=== PATIENT | female | born 1985 | race Caucasian/White ===

== ENCOUNTER 2016-05-23 02:09 | Emergency (ER) | payer OTHER ==
[~2016-05-23] VITALS: Ht 157.5 cm; Wt 137.5 kg
[~2016-05-23 02:09] MED LIST: ASPI81TA28 PO; LANS30CA12 PO; LORA-741 PO
[2016-05-23 02:13] VITALS: TEMP 36.4; Ht 157.5 cm; Wt 137.5 kg
[2016-05-23] MEDS ORDERED: IBUPROFEN 600 MG TAB PO STA (02:20)
[2016-05-23] MEDS ORDERED: DIPHTHERIA/TETANUS/PERTUSSIS 0.5 ML SYR/VIAL IM. ONE (02:30)
[2016-05-23] MEDS ORDERED: XYLOCAINE 1%/SOD BICARB 20 ML VIAL INFIL ONE (02:30)
--- NOTE | 2016-05-23 02:53 | EMERGENCY ROOM VISIT NOTE ---
History First contact with patient: 02:15 Chief Complaint: FALL Stated Complaint: CUT LEG RT, RT WRIST HURTS-WC History of Present Illness The patient is a 31 year old female who presents to the Emergency Room with complaints of right wrist injury, right lower leg laceration with abrasion, right elbow abrasion and head injury after she fell at work landing on her right wrist and striking her head. Patient accidentally hit her leg on an object at work while carrying boxes and cut it. Tetanus is not current. Patient denies loss of conscious, neck pain, facial pain, dental pain, visual problems, numbness, tingling, hand pain, finger pain, elbow pain, chest pain, dyspnea, abdominal pain or any other medical complaints. No prior fracture to this area. Patient states this is a work-related injury. Review of Systems See HPI for pertinent positives & negatives. A total of 10 systems reviewed and were otherwise negative. Past Medical/Surgical History Medical Problems: (1) Cholelithiasis Nos Appendectomy Family History Patient reports no known family medical history. Social History Smoking Status: Current Every Day Smoker Alcohol Use: occasionally Drug Use: none Marital Status: in relationship Housing Status: lives with significant other Occupation Status: employed Current/Historical Medications Scheduled Lansoprazole (Prevacid), 30 MG PO DAILY Allergies Coded Allergies: Amoxicillin (Verified Allergy, Severe, HIVES, 05/23/16) Physical Exam Vital Signs Date Time Temp Pulse Resp B/P Pulse Ox O2 Delivery O2 Flow Rate FiO2 05/23/16 02:25 99 20 133/92 97 Room Air 05/23/16 02:13 36.4 110 18 178/127 99 Room Air Physical Exam PHYSICAL EXAM: VITALS: Vitals are noted on the nurse's note and reviewed by myself. Vital signs hypertensive. GENERAL: Pleasant female, in no acute distress, nondiaphoretic, well-developed well-nourished. SKIN: 3 cm right lower leg laceration is gaping and appears clean with superficial abrasion to the right lower leg and to the right elbow that appears clean The rest of the skin was without obvious lacerations or abrasions. Capillary reflex less than 2 seconds. HEAD: Normocephalic atraumatic. Face: Face nontender to palpation with superficial contusion to the right temporal region EARS: External auditory canals clear, tympanic membranes pearly chao without erythema or effusion bilaterally. No hemotympanums. No hernandez sign. No mastoid tenderness. EYES: Pupils equal round and reactive to light and accommodation. Conjunctivae without injection, sclerae without icterus. Extraocular movements intact. NOSE: Patent, turbinates without inflammation or discharge. No sinus tenderness. No septal hematoma or bleeding. FACE: No facial bone tenderness. Full range of motion of the jaw without tenderness. MOUTH: Mucous membranes moist. Pharynx without erythema or exudate. Uvula midline. Airway patent. Tongue does not deviate. NECK: Supple without nuchal rigidity. Cervical spine is nontender. Full range of motion of the neck without tenderness. No JVD. HEART: Regular rate and rhythm without murmurs gallops or rubs. LUNGS: Clear to auscultation bilaterally without wheezes, rales or rhonchi. No dullness to percussion. No retractions or accessory muscle use. No chest wall tenderness. ABDOMEN: Positive bowel sounds x 4. Normal tympanic percussion. Soft, protuberant, obese, nontender, without masses or organomegaly. No guarding or rebound tenderness. MUSCULOSKELETAL: No tenderness of the thoracic or lumbar spine. Right wrist minimally tender to palpation with increased pain with range of motion, Full range of motion without tenderness to palpation in all other extremities. Normal gait. Strength 5/5 throughout. Peripheral pulses 2+. NEURO: Patient was alert and oriented to person place and time. Normal Mini- Mental status exam. Normal sensation to light and sharp touch. Negative Romberg and pronator drift. Cerebellar function intact. No focal neurological deficits. Medical Decision & Procedures Medications Administered Medications (Trade) Dose Ordered Sig/Riya Route Start Time Stop Time Status Last Admin Dose Admin Diphtheria/ Pertussis/Tetanus Vacc (Adacel Inj) 0.5 ml ONCE ONCE IM. 05/23/16 02:30 05/23/16 02:31 DC 05/23/16 02:30 0.5 ML Ibuprofen (Motrin Tab) 600 mg NOW STAT PO 05/23/16 02:20 05/23/16 02:22 DC 05/23/16 02:29 600 MG Procedure Location: Right lower leg Total length: 3 centimeters Complexity: Simple Verbal consent was obtained after the risks and benefits were explained, including but not limited to bleeding, scarring, infection, pain, and bone/joint /nerve damage. At this time, the risks of the procedure are less than the risks of NOT performing the procedure. A time out was taken and the correct patient and site identified. The skin was prepped with betadine. The target area was anesthetized with 3 ml of 1% lidocaine without epinephrine. Copious irrigation was performed using NS. The skin was re-prepped with betadine and a sterile field set. The wound was explored for foreign bodies and none found. Examination revealed no injury to deep structures such as tendons, bone, or significant blood vessels. Debridement was not performed. The wound edges were approximated using 5, 4-0 simple interrupted nylon sutures. Hemostasis and excellent approximation was achieved. Antibacterial ointment and a sterile dressing applied. The patient's leg was quite edematous secondary to move her obesity so an Reynaldo wrap was applied for extra compression. Neurovascular status was checked after placement and is intact. Detailed wound care instructions and signs and symptoms of infection reviewed with the pt. No complications and the patient tolerated the procedure well. ED Course Prior records/ancillary studies reviewed. Triage Nursing notes reviewed. Additional history obtained from family. The patient's history was concerning for traumatic head injury, lower leg laceration and wrist injury Differential diagnosis: Etiologies such as concussion, contusion, fracture, subdural hematoma, epidural hematoma, intraparenchymal hemorrhage, as well as other traumatic pathologies were entertained. Physical examination findings: As above. ER treatment provided: Laceration repaired as above On reassessment the patient felt better. Diagnostics interpreted by me: Imaging studies: Wrist x-ray with no acute fracture, dislocation or effusion per my interpretation It appears the patient has a head injury with wrist injury and lower leg laceration and abrasion. I discussed the risks and the benefits of CT scanning. Clinically the patient is doing well and does not appear to have a significant underlying injury. The pt felt comfortable with conservative observation with the understanding if the clinical picture change that imaging may be necessary at a later time. I gave my usual and customary discussion regarding this issue. Patient was counseled on head injury signs and symptoms and verbalized understanding of this. She was advised no alcohol or strenuous activity for the week and do not resume these activities until cleared by family care. Patient was also counseled on wound care. She is advised to return to the immediate for severe pain, fevers, drainage, redness, worsening signs or symptoms or as needed. By the evaluation outlined above emergent etiologies such as fracture, subdural hematoma, epidural hematoma, intraparenchymal hemorrhage, as well as others were deemed relatively unlikely. The pt informed about the findings as listed above. All questions were answered and pleased with the treatment. Return instructions were outlined and the patient was discharged in stable condition. Referral: The patient was referred back to their primary care physician/occupational health for follow-up in 2 to 3 days for a recheck of the current condition. Case reviewed with my attending. Medical Decision As above Impression Primary Impression: Fall Additional Impressions: Work related injury Laceration of right lower leg Abrasion, right lower leg, initial encounter Abrasion of right elbow, initial encounter Right wrist injury Head injury Departure Information Dispostion Home / Self-Care Condition GOOD Referrals No Doctor, Assigned (PCP) Patient Instructions My [facility] Additional Instructions Read head injury handout and return for any symptoms. Tylenol 1000 mg as needed for pain (Maximum 3000 mg Tylenol in 24 hr period). Avoid alcohol and contact sports/activities for one week and follow up with family doctor prior to returning to these activities if still symptomatic. Ice and elevate head. If your symptoms persist more than a week then follow up with the concussion clinic. Call [phone]. Return to ER sooner for headache, fevers, confusion, worsening signs or symptoms or as needed. Wear Reynaldo wrap for compression over laceration until stitches are removed. Do not have it so tight that you cannot feel your foot. Keep wound clean and dry. Do not allow any crusting or dried blood to accumulate on sutures. If this occurs, use a 1:1 solution of hydrogen peroxide/ water on a Q-tip to clean the wound. Use an antibiotic ointment for 3-4 days, then let wound dry. Suture removal in 10-12 days. Return sooner for any signs of infection (increasing redness, swelling, drainage). Ice and elevate for swelling and pain. Ibuprofen 600 mg and Tylenol 1000 mg every 6 hrs for pain. Keep covered when in sun until sutures removed then SPF 50 or higher for one year. Vitamin E oil if desired two weeks after suture removal for reduction of scar Antibiotic ointment and bandage to the areas until healed. Follow up with family doctor or return for any signs of infection (increasing redness, swelling , drainage, or fever). Keep covered when in sun until fully healed then SPF 50 or higher until scar healed. Return to ER sooner for headache, fevers, confusion, severe pain, numbness, tingling, worsening signs or symptoms or as needed. This is a work-related injury. Follow-up with your occupational health. 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 Problem Qualifiers Primary Impression: Fall Encounter type: initial encounter Qualified Codes: W19.XXXA - Unspecified fall, initial encounter Additional Impressions: Laceration of right lower leg Encounter type: initial encounter Qualified Codes: S81.811A - Laceration without foreign body, right lower leg, initial encounter Head injury Encounter type: initial encounter Qualified Codes: S09.90XA - Unspecified injury of head, initial encounter
[2016-05-23 03:13] VITALS: BP 151/89; PULSE 91; O2SAT 97
--- NOTE | 2016-05-23 08:00 | DIAGNOSTIC IMAGING REPORT ---
RIGHT WRIST 5 VIEWS CLINICAL HISTORY: Fall with right wrist pain. FINDINGS: 5 views of the right wrist are obtained. No prior studies are available for comparison at the time of dictation. The skeletal structures are well mineralized. No fracture is seen. The joint spaces of the wrist are preserved. The overlying soft tissues are within normal limits. IMPRESSION: Unremarkable radiographic assessment of the right wrist. Electronically signed by: Erwin Bartholomew M.D. 05/23/2016 7:58 AM Dictated Date/Time: 05/23/2016 7:57 AM
== END 2016-05-23 03:15 | disposition home or self-care (01) ==
LOC: C.EDB 02:10
DX: S81.811A Laceration without foreign body, right lower leg, initial encounter (principal); S09.90XA Unspecified injury of head, initial encounter; S50.311A Abrasion of right elbow, initial encounter; S69.91XA Unspecified injury of right wrist, hand and finger(s), initial encounter; Y99.0 Civilian activity done for income or pay; W22.09XA Striking against other stationary object, initial encounter; F17.210 Nicotine dependence, cigarettes, uncomplicated; Z79.899 Other long term (current) drug therapy

== ENCOUNTER 2016-06-02 18:39 | Emergency (ER) | payer OTHER ==
[~2016-06-02] VITALS: Ht 157.5 cm; Wt 137.8 kg
[~2016-06-02 18:39] MED LIST changes: -ASPI81TA28 PO; -LORA-741 PO
[2016-06-02 18:55] VITALS: BP 146/84; PULSE 89; TEMP 36.6; O2SAT 97; Ht 157.5 cm; Wt 137.8 kg
--- NOTE | 2016-06-02 19:08 | EMERGENCY ROOM VISIT NOTE ---
ED Visit Note First contact with patient: 18:59 CHIEF COMPLAINT: Removal of sutures HISTORY OF PRESENT ILLNESS: This 31-year-old female patient presents to the emergency department for removal of sutures from their right lower leg. The sutures were placed 10 days ago. There have been no signs of infection. The patient denies any pain. REVIEW OF SYSTEMS: A review of systems was performed with positives and pertinent negatives listed in the history of present illness. All other systems were reviewed and are negative. ALLERGIES: Amoxicillin MEDICATIONS: Unchanged from previous visit. PMH: Unchanged from previous visit. SOCIAL HISTORY: Patient lives locally with family. PHYSICAL EXAM: VITALS: Vitals are noted on the nurse's note and reviewed by myself. Vital signs stable. GENERAL: This is a 31-year-old female, in no acute distress, nondiaphoretic, well-developed well-nourished. SKIN: There is a well-healing sutured wound on the right lower leg with no signs of infection. EMERGENCY DEPARTMENT COURSE: The patient was evaluated as above. Sutures were removed from the right leg with no dehiscence. There is no evidence of infection. Scar reduction measures were discussed the the patient. They verbalized understanding and were discharged home in good condition. DIAGNOSIS: Encounter for suture removal DISCHARGE INSTRUCTIONS & TREATMENT: Wash the remaining crusts off the wound. Keep the wound covered with SPF for the next 6 months to reduce scarring. Once the wound has fully healed, you may apply Vitamin E oil, cocoa butter, or any over the counter scar reducing formulations daily. Current/Historical Medications Scheduled Lansoprazole (Prevacid), 30 MG PO DAILY Allergies Coded Allergies: Amoxicillin (Verified Allergy, Severe, HIVES, 05/23/16) Vital Signs Date Time Temp Pulse Resp B/P Pulse Ox O2 Delivery O2 Flow Rate FiO2 06/02/16 18:55 36.6 89 18 146/84 97 Room Air Departure Information Impression Primary Impression: Encounter for removal of sutures Dispostion Home / Self-Care Condition GOOD Referrals No Doctor, Assigned (PCP) Patient Instructions My [facility] Additional Instructions Wash the remaining crusts off the wound. Keep the wound covered with SPF for the next 6 months to reduce scarring. Once the wound has fully healed, you may apply Vitamin E oil, cocoa butter, or any over the counter scar reducing formulations daily.
== END 2016-06-02 19:14 | disposition home or self-care (01) ==
LOC: C.EDB 18:54 → C.EDD 19:14
DX: S81.811D Laceration without foreign body, right lower leg, subsequent encounter (principal); X58.XXXD Exposure to other specified factors, subsequent encounter

== ENCOUNTER 2016-07-17 15:11 | Emergency (ER) | payer OTHER ==
[~2016-07-17] VITALS: Ht 157.5 cm; Wt 139.7 kg
[2016-07-17 15:16] VITALS: TEMP 36.7; Ht 157.5 cm; Wt 139.7 kg
[2016-07-17] MEDS ORDERED: LIDOCAINE HCL 2% JELLY 30 ML TUBE EXT ONE (15:45)
--- NOTE | 2016-07-17 16:27 | DIAGNOSTIC IMAGING REPORT ---
RIGHT LOWER EXTREMITY ULTRASOUND CLINICAL HISTORY: Open wound right lower leg. COMPARISON STUDY: No previous studies for comparison. FINDINGS: No well-defined fluid collection is identified to suggest an abscess within the right calf at site of wound. There was a ill-defined hypoechoic subcutaneous focus at the level of the wound. No foreign body was identified. There was subcutaneous edema. IMPRESSION: No right calf abscess identified by sonography at site of wound. Electronically signed by: Chirag Stringer M.D. 07/17/2016 4:26 PM Dictated Date/Time: 07/17/2016 4:24 PM
[2016-07-17] MEDS ORDERED: CEPH500C PO (16:40)
[2016-07-17 16:56] VITALS: BP 133/69; PULSE 91; O2SAT 96
--- NOTE | 2016-07-19 18:34 | EMERGENCY ROOM VISIT NOTE ---
History First contact with patient: 15:22 Chief Complaint: INFECTION Stated Complaint: RIGHT LEG INFECTION History of Present Illness The patient is a 31 year old white female who presents to the Emergency Room with complaints of a persisting infection on her right lower leg. Patient was seen here initially in May for a leg laceration. She was working and accidentally cut herself on a broken beer bottle. Wound was explored here, irrigated, and closed here. She return for suture removal as instructed and no infection was found at that time. She states the wound has not healed. It has become more tender and is now draining pus. She denies any fevers or chills. She denies any streaking. There is no surrounding redness. She has not seen her PCP. No other treatment. A male director of agronomy accompanies her today. Review of Systems REVIEW OF SYSTEM: HEENT: No dizziness, visual problems, hearing loss, or tinnitus. There is no difficulty swallowing and no oral lesions are present. LYMPH: No adenopathy. PULMONARY: No cough, shortness of breath, sputum production or hemoptysis. CARDIOVASCULAR: No chest pain, palpitations, shortness of breath or peripheral edema. GASTROINTESTINAL: No diarrhea, constipation, nausea, vomiting, or abdominal pain. GENITOURINARY: No dysuria, frequency, urgency or nocturia. NEUROLOGIC: No weakness, muscle tenderness, epilepsy or history of neurological problems. MUSCULOSKELETAL: No history of joint tenderness/swelling. No history of arthritis or arthralgias. SKIN: No rashes or lesions. PSYCHIATRIC: No history of depression or mental illness. ENDOCRINE: No history of diabetes, thyroid disorders, or abnormal hair growth. Past Medical/Surgical History Medical Problems: (1) Cholelithiasis Nos Family History Patient reports no known family medical history. Social History Smoking Status: Current Every Day Smoker Smokeless Tobacco Use: No Alcohol Use: occasionally Drug Use: none Marital Status: in relationship Housing Status: lives with significant other Occupation Status: employed Current/Historical Medications Scheduled Cephalexin Monohydrate (Keflex), 500 MG PO QID Lansoprazole (Prevacid), 30 MG PO DAILY Allergies Coded Allergies: Amoxicillin (Verified Allergy, Severe, HIVES, 05/23/16) Physical Exam Vital Signs Date Time Temp Pulse Resp B/P (MAP) Pulse Ox O2 Delivery O2 Flow Rate FiO2 07/17/16 16:56 91 16 133/69 96 07/17/16 15:16 36.7 91 20 123/81 94 Room Air Pain Rating (0-10): 0 Physical Exam Gen.: Well-developed, well-nourished, morbidly obese young white female, in no acute distress. Obvious discomfort. Laying on a bed. Alert and oriented. Skin:Warm and dry with good turgor. No rashes. No ecchymosis. Patient has a slight pinkish tint to her entire lower leg. When compared to the other leg, it is the same. She has a 1.5-2 cm granulating area on the lateral aspect of her lower leg. Scab is present. There is serous fluid present. Nothing is expressible. I find no evidence for pus. Patient is hypersensitive in the area. There is no foreign material visible. It appears similar to a chronic ulceration. Stable base. It is shallow. The patient is not diaphoretic. No additional abrasions. Musculoskeletal: Gross motor function is intact to the right leg at the toes, ankle, knee, and hip. Neurologic: Gross sensation is intact across the right leg by soft touch. Peripheral pulses are 2+. Medical Decision & Procedures ER Provider Diagnostic Interpretation: Musculoskeletal ultrasound was obtained today to assess for any deep pockets or retained foreign material. This was read by radiology as negative for abscess or retained foreign body. There is subcutaneous edema. Medications Administered Medications (Trade) Dose Ordered Sig/Riya Route Start Time Stop Time Status Last Admin Dose Admin Lidocaine HCl (Xylocaine Jelly 2%) 2 ml NOW ONCE EXT 07/17/16 15:45 07/17/16 15:46 DC 07/17/16 15:43 2 ML Lidocaine 2% jelly ED Course Patient and her director of agronomy were educated regarding today's findings. Conservative care measures were discussed. She was reassured that I do not suspect a deep abscess or retained foreign body. She may have some localized cellulitis. Because of her discomfort in the area, I did apply 2% lidocaine jelly topically. She was shown how to do wet-to-dry dressings and one was placed tonight. She will changes every 12-24 hours to assist with exfoliation. She was started on Keflex 500 mg 4 times a day 7 days to minimize any risk for infection. Tylenol and Motrin every 6 hours as needed for discomfort. Follow-up with her PCP for reexamination this week. Avoid picking at the wound. She should decrease her smoking or stop altogether as smoking will delay her wound healing. Medical Decision Possibility of abscess, retained foreign body, diabetic ulcer, and delayed wound healing due to picking at the wound, were all considered. Impression Primary Impression: Wound healing, delayed Departure Information Dispostion Home / Self-Care Condition GOOD Prescriptions Cephalexin Monohydrate (Keflex) 500 Mg Cap 500 MG PO QID, #28 CAP Prov: Atilio Mario,P.A. 07/17/16 Referrals No Doctor, Assigned (PCP) Forms WORK / SCHOOL INSTRUCTIONS, HOME CARE DOCUMENTATION FORM, MOTRIN USE, TYLENOL USE, IMPORTANT VISIT INFORMATION Patient Instructions My [facility] Additional Instructions Apply wet to dry dressings daily until the wound is fully healed-change once or twice per day Keflex one pill 4 times a day 7 days Follow-up with your PCP for reexamination later this week, and for a general checkup Tylenol and Motrin every 6 hours as needed for discomfort Avoid picking at the wound
== END 2016-07-17 16:57 | disposition home or self-care (01) ==
LOC: C.EDB 15:13 → C.EDC 16:57
DX: S81.801D Unspecified open wound, right lower leg, subsequent encounter (principal); W25.XXXD Contact with sharp glass, subsequent encounter; Y93.89 Activity, other specified; Y99.0 Civilian activity done for income or pay; F17.200 Nicotine dependence, unspecified, uncomplicated

== ENCOUNTER 2016-10-28 19:10 | Emergency (ER) | payer OTHER ==
[~2016-10-28] VITALS: Ht 157.5 cm; Wt 138.4 kg
[~2016-10-28 19:10] MED LIST changes: +CEPH500C PO
[2016-10-28 19:31] VITALS: BP 144/99; PULSE 97; TEMP 36.9; O2SAT 98; Ht 157.5 cm; Wt 138.4 kg
== END 2016-10-28 20:46 | disposition left against medical advice (07) ==
LOC: C.EDB 19:12
DX: I10 Essential (primary) hypertension (principal)

== ENCOUNTER 2016-11-11 01:27 | Emergency (ER) | payer SELFPAY ==
[~2016-11-11] VITALS: Ht 157.5 cm; Wt 139.9 kg
[2016-11-11 01:31] VITALS: TEMP 36.3; Ht 157.5 cm; Wt 139.9 kg
[2016-11-11] MEDS ORDERED: LORAZEPAM 1 MG TAB SL STA (02:04)
[2016-11-11 02:11] LABS: BASO % 0.2 %; BASO ABS # 0.03 K/uL (0-0.2); COMPLETE YES; EOS % 1.7 %; HEMATOCRIT 40.8 % (37-47); IG% 0.2 %; LYMPH % 23.8 %; MEAN CELL VOLUME 93.2 fL (80-100); MEAN CORPUSCULAR HEMOGLOBIN 31.1 pg (25-34); MEAN CORPUSCULAR HGB CONC 33.3 g/dl (32-36); MONO % 7.1 %; PLATELET COUNT 268 K/uL (130-400); RED BLOOD COUNT 4.38 M/uL (4.2-5.4); WHITE BLOOD COUNT 12.19 K/uL (4.8-10.8)
[2016-11-11 02:15] LABS: URINE APPEARANCE CLOUDY (CLEAR); URINE BILIRUBIN NEG (NEG); URINE COLOR YELLOW; URINE EPITHELIAL CELL AUTO >30 /lpf (0-5); URINE NITRITE NEG (NEG); URINE PH 7.5 (4.5-7.5); URINE SPECIFIC GRAVITY 1.019 (1.000-1.030); UROBILINOGEN NEG (NEG); ZZUR CULT IF INDIC CLEAN CATCH YES
[2016-11-11 02:19] LABS: MANUAL MICROSCOPIC REQUIRED? NO; REVIEW REQ? NO
[2016-11-11 02:29] LABS: ALT/SGPT 47 U/L (12-78); AST/SGOT 26 U/L (15-37); BLOOD UREA NITROGEN 12 mg/dl (7-18); BUN/CREATININE RATIO 15.6 (10-20); CALCIUM 8.6 mg/dl (8.5-10.1); CARBON DIOXIDE 26 mmol/L (21-32); CHLORIDE 104 mmol/L (98-107); CREATININE 0.76 mg/dl (0.60-1.20); GLUCOSE 101 mg/dl (70-99); MAGNESIUM 2.2 mg/dl (1.8-2.4); POTASSIUM 3.7 mmol/L (3.5-5.1); SODIUM 138 mmol/L (136-145)
[2016-11-11] MEDS ORDERED: MULTTAB58 PO (02:30)
[2016-11-11 02:39] LABS: ALB/GLOB RATIO 1.1 (0.9-2); ALKALINE PHOSPHATASE 85 U/L (45-117)
[2016-11-11 02:44] LABS: PREG INTERNAL NEGATIVE QC NEG CLEAR BACKGROUND; PREG INTERNAL POSITIVE QC POS CONTROL LINE
[2016-11-11 02:49] LABS: BENZODIAZEPINE, URINE NEG (NEG); COCAINE,URINE NEG (NEG); PHENCYCLIDINE, URINE NEG (NEG)
[2016-11-11] MEDS ORDERED: ATV/1 PO (04:18)
--- NOTE | 2016-11-11 04:19 | EMERGENCY ROOM VISIT NOTE ---
History First contact with patient: 01:35 Chief Complaint: DIZZY Stated Complaint: DIZZINESS,DON'T FEEL RIGHT,ANXIOUS Nursing Triage Summary: triage note: Pt took BP at home and was 205/126, pt states she has been feeling weak and dizzy for 2 weeks. Denies other symptoms. Pt reported high BP on [employer] [place] machine. Also reports history of severe anxiety , unsure if this is the same or not. History of Present Illness The patient is a 31 year old female who presents to the Emergency Room with complaints of "not feeling right." The patient states that she has had these symptoms for "a long time." She states that she has had symptoms intermittently for several years. She is having a difficult time describing her symptoms and states that she "feels weird." She states she feels like she forgets to breathe. She has a history of anxiety and does admit to feeling very anxious. She states that a few weeks ago she took her blood pressure at a grocery store and found to be 205/126. She bought a blood pressure cuff and has been measuring it frequently since then and states it has been elevated. The patient reports she has been treated in the past for her anxiety with Ativan , however her primary care provider will no longer prescribe this to her. She states she has been on multiple daily medications for her anxiety, but none of them work. She denies any chest pain, nausea/vomiting, or syncope. Review of Systems A complete 10 point review of systems was reviewed with the patient with pertinent positives and negatives as per history of present illness. All else were negative. Past Medical/Surgical History Medical Problems: (1) Cholelithiasis Nos Family History Patient reports no known family medical history. Social History Smoking Status: Current Every Day Smoker Alcohol Use: occasionally Drug Use: none Marital Status: in relationship Housing Status: lives with significant other Occupation Status: employed Current/Historical Medications Scheduled Lansoprazole (Prevacid), 30 MG PO DAILY Multiple Vitamin (Multivitamin), 1 PKT PO BIDM Scheduled PRN Lorazepam (Ativan), 1 MG PO TID PRN for Anxiety Allergies Coded Allergies: Amoxicillin (Verified Allergy, Severe, HIVES, 11/11/16) Physical Exam Vital Signs Date Time Temp Pulse Resp B/P (MAP) Pulse Ox O2 Delivery O2 Flow Rate FiO2 11/11/16 04:37 92 23 97 11/11/16 04:31 124/65 11/11/16 04:22 93 25 97 11/11/16 04:07 92 20 98 11/11/16 04:02 128/73 11/11/16 03:52 98 20 97 11/11/16 03:39 107/64 11/11/16 03:37 100 21 98 11/11/16 03:32 11/11/16 03:22 97 18 98 11/11/16 03:07 102 21 98 11/11/16 03:01 124/85 11/11/16 02:52 102 17 99 11/11/16 02:47 104 15 98 11/11/16 02:32 108 17 99 11/11/16 02:31 128/76 11/11/16 02:17 104 21 99 11/11/16 02:12 106 20 98 Room Air 11/11/16 02:01 140/103 11/11/16 01:57 108 16 11/11/16 01:52 111 11/11/16 01:31 36.3 111 18 141/90 100 Room Air Physical Exam VITALS: Vitals are noted on the nurse's note and reviewed by myself. Vital signs stable. GENERAL: This is a 31-year-old female, in no acute distress but anxious appearing, nondiaphoretic, well-developed well-nourished. SKIN: Capillary reflex less than 2 seconds. HEENT: Normocephalic. PERRLA. EOMI. Nares patent. Mucous membranes moist. Neck is supple without nuchal rigidity. HEART: Regular rate and rhythm without murmurs gallops or rubs. LUNGS: Clear to auscultation bilaterally without wheezes, rales or rhonchi. ABDOMEN: Positive bowel sounds x 4. Soft, nontender to palpation. NEURO: Patient was alert and oriented to person place and time. Medical Decision & Procedures ER Provider Diagnostic Interpretation: CHEST X-RAY: No acute cardiopulmonary findings. Laboratory Results 11/11/16 01:55 Red Blood Count 4.38, Mean Corpuscular Volume 93.2, Mean Corpuscular Hemoglobin 31.1, Mean Corpuscular Hemoglobin Concent 33.3, Mean Platelet Volume 11.0, Neutrophils (%) (Auto) 67.0, Lymphocytes (%) (Auto) 23.8, Monocytes (%) (Auto) 7.1, Eosinophils (%) (Auto) 1.7, Basophils (%) (Auto) 0.2, Neutrophils # (Auto) 8.15, Lymphocytes # (Auto) 2.90, Monocytes # (Auto) 0.87, Eosinophils # (Auto) 0.21, Basophils # (Auto) 0.03 11/11/16 01:55 Test 11/11/16 01:55 White Blood Count 12.19 K/uL (4.8-10.8) Red Blood Count 4.38 M/uL (4.2-5.4) Hemoglobin 13.6 g/dL (12.0-16.0) Hematocrit 40.8 % (37-47) Mean Corpuscular Volume 93.2 fL (80-100) Mean Corpuscular Hemoglobin 31.1 pg (25-34) Mean Corpuscular Hemoglobin Concent 33.3 g/dl (32-36) Platelet Count 268 K/uL (130-400) Mean Platelet Volume 11.0 fL (7.4-10.4) Neutrophils (%) (Auto) 67.0 % Lymphocytes (%) (Auto) 23.8 % Monocytes (%) (Auto) 7.1 % Eosinophils (%) (Auto) 1.7 % Basophils (%) (Auto) 0.2 % Neutrophils # (Auto) 8.15 K/uL (1.4-6.5) Lymphocytes # (Auto) 2.90 K/uL (1.2-3.4) Monocytes # (Auto) 0.87 K/uL (0.11-0.59) Eosinophils # (Auto) 0.21 K/uL (0-0.5) Basophils # (Auto) 0.03 K/uL (0-0.2) RDW Standard Deviation 44.2 fL (36.4-46.3) RDW Coefficient of Variation 13.0 % (11.5-14.5) Immature Granulocyte % (Auto) 0.2 % Immature Granulocyte # (Auto) 0.03 K/uL (0.00-0.02) Urine Color YELLOW Urine Appearance CLOUDY (CLEAR) Urine pH 7.5 (4.5-7.5) Urine Specific [place] 1.019 (1.000-1.030) Urine Protein NEG (NEG) Urine Glucose (UA) NEG (NEG) Urine Ketones NEG (NEG) Urine Occult Blood NEG (NEG) Urine Nitrite NEG (NEG) Urine Bilirubin NEG (NEG) Urine Urobilinogen NEG (NEG) Urine Leukocyte Esterase NEG (NEG) Urine WBC (Auto) 1-5 /hpf (0-5) Urine RBC (Auto) 0-4 /hpf (0-4) Urine Hyaline Casts (Auto) 1-5 /lpf (0-5) Urine Epithelial Cells (Auto) >30 /lpf (0-5) Urine Bacteria (Auto) 1+ (NEG) Anion Gap 8.0 mmol/L (3-11) Est Creatinine Clear Calc Drug Dose 144.3 ml/min Estimated GFR () 120.3 Estimated GFR (Non- 103.8 BUN/Creatinine Ratio 15.6 (10-20) Calcium Level 8.6 mg/dl (8.5-10.1) Magnesium Level 2.2 mg/dl (1.8-2.4) Total Bilirubin 0.3 mg/dl (0.2-1) Aspartate Amino Transf (AST/SGOT) 26 U/L (15-37) Alanine Aminotransferase (ALT/SGPT) 47 U/L (12-78) Alkaline Phosphatase 85 U/L (45-117) Troponin I < 0.015 ng/ml (0-0.045) Total Protein 7.2 gm/dl (6.4-8.2) Albumin 3.7 gm/dl (3.4-5.0) Globulin 3.5 gm/dl (2.5-4.0) Albumin/Globulin Ratio 1.1 (0.9-2) Thyroid Stimulating Hormone (TSH) 2.520 uIu/ml (0.300-4.500) Human Chorionic Gonadotropin, Qual NEG (NEG) Urine Opiates Screen NEG (NEG) Urine Methadone, Qualitative NEG (NEG) Urine Barbiturates NEG (NEG) Urine Phencyclidine (PCP) Level NEG (NEG) Ur Amphetamine/Methamphetamine NEG (NEG) MDMA (Ecstasy) Screen NEG (NEG) Urine Benzodiazepines Screen NEG (NEG) Urine Cocaine Metabolite NEG (NEG) Urine Marijuana (THC) NEG (NEG) Date/Time Source Procedure Growth Status 11/11/16 01:55 Urine , Clean Catch Urine Culture - Final MORE THAN THREE TYPES OF ORGANISMS NM... Complete Medications Administered Medications (Trade) Dose Ordered Sig/Riya Route Start Time Stop Time Status Last Admin Dose Admin Lorazepam (Ativan Tab) 1 mg NOW STAT SL 11/11/16 02:04 11/11/16 02:06 DC 11/11/16 02:48 1 MG ECG Rate (beats per minute): 110 Rhythm: sinus tachycardia Findings: no acute ischemic change, no ectopy ED Course The patient was evaluated as above. Labs were drawn and IV access was obtained. Patient was medicated with 1 mg Ativan sublingually. Patient was reevaluated and was feeling much better. I had a lengthy discussion with the patient regarding outpatient follow up. Discharge instructions were reviewed with the patient. The patient verbalized understanding of my assessment and treatment plan and was discharged home in good condition. Medical Decision Differential diagnosis includes anxiety, ACS, drug use, infection, metabolic abnormality, among others. The patient is a 31-year-old female who presents today complaining of feeling anxious. Labs revealed a mild leukocytosis, possibly secondary to stress. There were no concerning anemia or electrolyte abnormalities. Urinalysis was not suggestive of infection. Urine was negative. Tox screen was negative. EKG was interpreted by myself and shows a sinus tachycardia. Patient was initially hypertensive, however this improved throughout her stay. Patient was given 1 mg sublingual Ativan with resolution of symptoms. I had a very lengthy discussion with the patient and her significant other regarding her symptoms. They seem to be consistent with anxiety. I did agree to give the patient a short course of Ativan to be used for breakthrough symptoms such as these, however discussed the importance of following up with a psychiatric provider for further evaluation and treatment of her anxiety. The patient was agreeable to this. Based on the patient's presentation and work up, I feel the patient is stable for outpatient treatment. The patient was educated to return to the emergency department for any worsening of their current condition or new/concerning symptoms. She will follow up with a psychiatrist and her primary care provider. Blood Pressure Screening: Patient was found to have a slightly elevated blood pressure due to circumstances. I do not believe that the patient requires hypertension monitoring. Medication reconciliation: I attest that I have personally reviewed the patient 's current medication list. [place] Drug Monitoring Program Search Results: patient reviewed within database, no issues identified Impression Primary Impression: Anxiety Departure Information Dispostion Home / Self-Care Condition GOOD Prescriptions Lorazepam (ATIVAN) 1 Mg Tab 1 MG PO TID Y for Anxiety, #9 TAB Prov: Reta Wallis ., JOHN 11/11/16 Referrals No Doctor, Assigned (PCP) Patient Instructions [facility] Additional Instructions Ativan up to 3 times daily as needed for anxiety. Follow-up with a psychiatrist for further evaluation. You should schedule a follow-up appointment with your primary care provider this week. Return to the emergency department with any worsening or new/concerning symptoms.
[2016-11-11 04:31] VITALS: BP 124/65
[2016-11-11 04:37] VITALS: PULSE 92; O2SAT 97
--- NOTE | 2016-11-11 07:36 | DIAGNOSTIC IMAGING REPORT ---
CHEST ONE VIEW PORTABLE CLINICAL HISTORY: 31 years-old Female presenting with dizziness. TECHNIQUE: Portable upright AP view of the chest was obtained. COMPARISON: 10/08/2015. FINDINGS: Image quality is limited due to patient body habitus. Cardiac silhouette top normal in size. Mild elevation of the right hemidiaphragm, unchanged. Lungs and pleural spaces clear. Osseous structures normal. Upper abdomen normal. IMPRESSION: 1. No acute cardiopulmonary disease. Electronically signed by: Jonathan Quinn M.D. 11/11/2016 7:35 AM Dictated Date/Time: 11/11/2016 7:34 AM
== END 2016-11-11 04:42 | disposition home or self-care (01) ==
LOC: C.EDB 01:28 → C.EDA 04:42
DX: F41.9 Anxiety disorder, unspecified (principal); F17.210 Nicotine dependence, cigarettes, uncomplicated; Z79.899 Other long term (current) drug therapy